=== PATIENT | female | born 1965 | race Caucasian/White ===

== ENCOUNTER 2017-05-27 12:35 | Day surgery (SDC) | payer OTHER ==
[2017-05-27 13:54] VITALS: BP 139/89; PULSE 55; RESP 16; TEMP 98; O2SAT 100
[2017-05-27 14:35] VITALS: BP 146/92; PULSE 59; RESP 20; TEMP 97; O2SAT 100
[2017-05-27] MEDS ORDERED: LIDOCAINE HCL 1% PF 30 ML VIAL ONE (15:19)
--- NOTE | 2017-05-27 15:47 | RADRPT ---
EXAM DATE/TIME: 05/27/2017 13:13 [place] COMPARISON: No previous studies available for comparison. [facility] 2017. INDICATIONS : Right thyroid nodule. MEDICAL HISTORY : Arthritis. Sinusitis. Anxiety. Depression. Migraine. Insomnia. SURGICAL HISTORY : None. ENCOUNTER: Initial ACUITY: 2 weeks PAIN SCORE: 2/10 LOCATION: Right neck. ORGAN: Right thyroid lobe SPECIMENS: Three fine needle aspirate(s) submitted for pathologic evaluation. DEVICE: 22 gauge needle Post procedure scanning reveals no hematoma or other complication. The possibility does exist that the tissue obtained will be non-diagnostic. If the sample is non-dann gnostic a repeat biopsy or surgical biopsy may need to be performed. TECHNIQUE: 1. Ultrasound guidance for needle biopsy. 2. Needle biopsy. The risks, benefits, and alternatives to ultrasound guided needle biopsy were explained to the patien t in detail including the risk of bleeding and infection. Written and verbal informed consent was ob tained. With the patient on the ultrasound table, images were obtained. Overlying skin was prepped and drape d in the usual sterile fashion and Lidocaine was utilized as a local anesthetic. A needle was advanced into the identified target and the number of specimens as above obtained and wilkins bmitted for pathologic evaluation. The patient tolerated the procedure well and left the ultrasound suite in stable condition. CONCLUSION: Uncomplicated ultrasound guided needle biopsy of dominant nodule the right thyroid lobe. Jose J Garrido MD on May 27, 2017 at 15:45 Board Certified Radiologist. This report was verified electronically.
== END 2017-05-27 14:55 | disposition home or self-care (01) ==
LOC: HRAD 12:35 → HRIP 12:47 → HRAD 14:55
PROVIDERS: ATTEND Internal Medicine
DX: E04.1 Nontoxic single thyroid nodule (principal); I10 Essential (primary) hypertension; G43.909 Migraine, unspecified, not intractable, without status migrainosus; F32.9 Major depressive disorder, single episode, unspecified; F41.9 Anxiety disorder, unspecified; M19.90 Unspecified osteoarthritis, unspecified site
CPT/HCPCS: 10022; 76942; 88172; 88173